=== PATIENT | female | born 1935 | race Caucasian/White ===

== ENCOUNTER 2017-04-03 23:50 | Emergency (ER) | payer OTHER, BC ==
[2017-04-04 02:11] VITALS: BP 111/54
== END 2017-04-04 02:11 | disposition home or self-care (01) ==
LOC: ED 23:50
DX: S81.811A Laceration without foreign body, right lower leg, initial encounter (principal); F41.9 Anxiety disorder, unspecified; M06.9 Rheumatoid arthritis, unspecified; E11.9 Type 2 diabetes mellitus without complications; I26.99 Other pulmonary embolism without acute cor pulmonale; K90.0 Celiac disease; Z79.899 Other long term (current) drug therapy; W22.8XXA Striking against or struck by other objects, initial encounter; Y93.89 Activity, other specified; Y92.89 Other specified places as the place of occurrence of the external cause; Y99.8 Other external cause status
CPT/HCPCS: J2001

== ENCOUNTER 2018-01-27 12:01 | Inpatient (IN) | payer OTHER, BC ==
[~2018-01-27] VITALS: Ht 160 cm; Wt 64.0 kg
[2018-01-27 14:15] LABS: BASOPHIL % 0.4 % (0-2); PLATELET COUNT 232 x10^3mcL (130-400)
[2018-01-27 14:23] LABS: RED CELL DISTRIBUTION WIDTH 15.6 % (11.5-14.5)
[2018-01-27 14:28] LABS: CALCIUM 9.2 mg/dL (8.5-10.1); CARBON DIOXIDE 30.4 mmol/L (21-32); CHLORIDE SERUM 100 mmol/L (98-107); CREATININE SERUM 0.8 mg/dL (0.6-1.0); GLUCOSE SERUM 95 mg/dL (74-106); SODIUM SERUM 138 mmol/L (136-145)
[2018-01-27 14:33] LABS: ALKALINE PHOSPHATASE 174 U/L (46-116); ALT/SGPT 25 U/L (14-59); AST/SGOT 29 U/L (15-37); BILIRUBIN TOTAL 0.4 mg/dL (0.20-1.00)
[2018-01-27 14:35] LABS: ALBUMIN 3.2 g/dL (3.4-5.0)
[2018-01-27] MEDS ORDERED: DULCOLAX5 M1 (15:39)
[2018-01-27] MEDS ORDERED: CITRATE OF1.75 GM/30 PO (15:40)
[2018-01-27] MEDS ORDERED: GABAPENTIN100 M2 (15:40)
[2018-01-27] MEDS ORDERED: ZOF4 (15:40)
[2018-01-27] MEDS ORDERED: COUMADIN1 MG (15:40)
[2018-01-27] MEDS ORDERED: ACID REDUCER75 MG (15:40)
[2018-01-27] MEDS ORDERED: TOPROL XL25 MG (15:41)
[2018-01-27] MEDS ORDERED: NORCO1 TA2 (15:41)
[2018-01-27 17:32] LABS: CHOLESTEROL/HDL RATIO 1.8; MAGNESIUM 2.7 mg/dL (1.8-2.4); PHOSPHOROUS 3.1 mg/dL (2.5-4.9); T3 TOTAL 0.63 ng/mL
[2018-01-27 17:35] LABS: FREE T4 1.24 ng/dL (0.76-1.46); FREE THYROXINE INDEX 2.6 ug/dL (1.4-4.5); T4(THYROXINE) 7.5 ug/dL (4.7-13.3)
[2018-01-27 17:46] VITALS: BP 156/83
[2018-01-27] MEDS ORDERED: LEVOTHYROXINE0.2 M2 PO (20:12)
[2018-01-27 21:33] VITALS: BP 144/78
[2018-01-28 05:31] VITALS: BP 149/91
[2018-01-28 06:44] LABS: BASOPHIL % 0.3 % (0-2); PLATELET COUNT 218 x10^3mcL (130-400); RED CELL DISTRIBUTION WIDTH 15.5 % (11.5-14.5)
[2018-01-28 07:04] LABS: CALCIUM 8.4 mg/dL (8.5-10.1); CARBON DIOXIDE 28.2 mmol/L (21-32); CHLORIDE SERUM 100 mmol/L (98-107); CREATININE SERUM 0.6 mg/dL (0.6-1.0); GLUCOSE SERUM 115 mg/dL (74-106); PHOSPHOROUS 2.7 mg/dL (2.5-4.9); POTASSIUM SERUM 3.9 mmol/L (3.5-5.1); SODIUM SERUM 135 mmol/L (136-145)
[2018-01-28 09:25] VITALS: BP 141/86
[2018-01-28 12:42] VITALS: BP 106/70
[2018-01-28 21:38] VITALS: BP 125/84
[2018-01-29 06:05] VITALS: BP 133/72
[2018-01-29 06:22] LABS: BASOPHIL % 0.4 % (0-2); PLATELET COUNT 205 x10^3mcL (130-400)
[2018-01-29 06:33] LABS: RED CELL DISTRIBUTION WIDTH 15.6 % (11.5-14.5)
[2018-01-29 06:41] LABS: CALCIUM 8.5 mg/dL (8.5-10.1); CARBON DIOXIDE 29.4 mmol/L (21-32); CHLORIDE SERUM 105 mmol/L (98-107); CREATININE SERUM 0.6 mg/dL (0.6-1.0); GLUCOSE SERUM 87 mg/dL (74-106); MAGNESIUM 2.4 mg/dL (1.8-2.4); PHOSPHOROUS 2.7 mg/dL (2.5-4.9); POTASSIUM SERUM 4.2 mmol/L (3.5-5.1); SODIUM SERUM 140 mmol/L (136-145)
[2018-01-29 09:55] VITALS: BP 128/79
[2018-01-29 10:15] VITALS: Ht 160 cm; Wt 64.0 kg
[2018-01-29 13:39] VITALS: BP 142/94
[2018-01-29 14:25] LABS: microscopic required? YES; urine erythrocyte TRACE (NEGATIVE)
[2018-01-29 16:45] VITALS: BP 127/78
[2018-01-29 21:34] VITALS: BP 140/79
[2018-01-30 06:36] LABS: BASOPHIL % 0.7 % (0-2); PLATELET COUNT 224 x10^3mcL (130-400)
[2018-01-30 06:39] LABS: RED CELL DISTRIBUTION WIDTH 15.4 % (11.5-14.5)
[2018-01-30 06:52] VITALS: BP 165/93
[2018-01-30 07:10] LABS: CHLORIDE SERUM 108 mmol/L (98-107); CREATININE SERUM 0.6 mg/dL (0.6-1.0); GLUCOSE SERUM 102 mg/dL (74-106); POTASSIUM SERUM 4.6 mmol/L (3.5-5.1); SODIUM SERUM 144 mmol/L (136-145)
[2018-01-30 10:26] VITALS: BP 140/79
[2018-01-30 11:07] VITALS: BP 151/89
[2018-01-30 13:35] VITALS: BP 151/91
[2018-01-30 22:20] VITALS: BP 145/95
[2018-01-31 05:40] VITALS: BP 166/109
[2018-01-31 06:40] LABS: BASOPHIL % 0.4 % (0-2); PLATELET COUNT 245 x10^3mcL (130-400)
[2018-01-31 07:01] LABS: RED CELL DISTRIBUTION WIDTH 15.2 % (11.5-14.5)
[2018-01-31 07:14] VITALS: BP 148/109
[2018-01-31 07:30] LABS: CARBON DIOXIDE 26.7 mmol/L (21-32); CHLORIDE SERUM 105 mmol/L (98-107); CREATININE SERUM 0.6 mg/dL (0.6-1.0); GLUCOSE SERUM 99 mg/dL (74-106); POTASSIUM SERUM 3.7 mmol/L (3.5-5.1); SODIUM SERUM 143 mmol/L (136-145)
[2018-01-31 10:13] VITALS: BP 143/94
[2018-01-31] MEDS ORDERED: COU5 PO (11:34)
[2018-01-31 14:33] VITALS: BP 134/92
== END 2018-01-31 15:35 | disposition home or self-care (01) | DRG 291 ==
LOC: ED 12:01 → DU 16:22
PROVIDERS: Emergency Medicine; Family Medicine Sports Medicine; Student in an Organized Health Care Education/Training Program
DX: I11.0 Hypertensive heart disease with heart failure (principal); N17.0 Acute kidney failure with tubular necrosis; E43 Unspecified severe protein-calorie malnutrition; Z68.1 Body mass index [BMI] 19.9 or less, adult; I27.82 Chronic pulmonary embolism; F11.20 Opioid dependence, uncomplicated; D68.9 Coagulation defect, unspecified; M48.54XA Collapsed vertebra, not elsewhere classified, thoracic region, initial encounter for fracture; K59.03 Drug induced constipation; I50.43 Acute on chronic combined systolic (congestive) and diastolic (congestive) heart failure; T40.2X5A Adverse effect of other opioids, initial encounter; I48.91 Unspecified atrial fibrillation; K21.9 Gastro-esophageal reflux disease without esophagitis; K44.9 Diaphragmatic hernia without obstruction or gangrene; T45.516A Underdosing of anticoagulants, initial encounter; M06.9 Rheumatoid arthritis, unspecified; M51.36 Other intervertebral disc degeneration, lumbar region; E83.41 Hypermagnesemia; E11.9 Type 2 diabetes mellitus without complications; E03.9 Hypothyroidism, unspecified; F41.1 Generalized anxiety disorder; F17.210 Nicotine dependence, cigarettes, uncomplicated; Z53.29 Procedure and treatment not carried out because of patient's decision for other reasons; Z91.120 Patient's intentional underdosing of medication regimen due to financial hardship; Z96.651 Presence of right artificial knee joint; Z79.01 Long term (current) use of anticoagulants; Z79.84 Long term (current) use of oral hypoglycemic drugs; T45.515A Adverse effect of anticoagulants, initial encounter; Y92.89 Other specified places as the place of occurrence of the external cause; Z91.19 Patient's noncompliance with other medical treatment and regimen; J44.9 Chronic obstructive pulmonary disease, unspecified; D64.9 Anemia, unspecified
CPT/HCPCS: 82962; 83880; 84439; 87046; 87046-59; J1885; J3010; J3430; J7030; J7042; J7620; Q0092; Q0162; Q9967

== ENCOUNTER 2018-11-03 02:35 | Emergency (ER) | payer OTHER, BC ==
[~2018-11-03] VITALS: Ht 172.7 cm; Wt 54.4 kg
[~2018-11-03 02:35] MED LIST: ACID REDUCER75 MG; CITRATE OF1.75 GM/30 PO; COU5 PO; COUMADIN1 MG; DULCOLAX5 M1; GABAPENTIN100 M2; LEVOTHYROXINE0.2 M2 PO; NORCO1 TA2; TOPROL XL25 MG; ZOF4
[2018-11-03 02:42] VITALS: Ht 172.7 cm; Wt 54.4 kg
[2018-11-03 03:37] LABS: BASOPHIL % 0.2 % (0-2); PLATELET COUNT 241 x10^3mcL (130-400); RED CELL DISTRIBUTION WIDTH 12.8 % (11.5-14.5)
[2018-11-03 05:19] VITALS: BP 150/94
== END 2018-11-03 05:19 | disposition home or self-care (01) ==
LOC: ED 02:35
PROVIDERS: Emergency Medicine
DX: S81.811A Laceration without foreign body, right lower leg, initial encounter (principal); E11.9 Type 2 diabetes mellitus without complications; I48.91 Unspecified atrial fibrillation; F41.9 Anxiety disorder, unspecified; Z86.79 Personal history of other diseases of the circulatory system; W26.8XXA Contact with other sharp object(s), not elsewhere classified, initial encounter; Y93.89 Activity, other specified; Y92.89 Other specified places as the place of occurrence of the external cause; Y99.8 Other external cause status
CPT/HCPCS: 90714; J2001

== ENCOUNTER 2018-11-04 21:35 | Emergency (ER) | payer OTHER, BC ==
[~2018-11-04] VITALS: Ht 172.7 cm; Wt 54.4 kg
[2018-11-04 21:41] VITALS: Ht 172.7 cm; Wt 54.4 kg
[2018-11-04 22:20] VITALS: BP 133/80
== END 2018-11-04 22:00 | disposition home or self-care (01) ==
LOC: ED 21:35
DX: S81.811A Laceration without foreign body, right lower leg, initial encounter (principal); E11.9 Type 2 diabetes mellitus without complications; M19.90 Unspecified osteoarthritis, unspecified site; I48.91 Unspecified atrial fibrillation; Z86.711 Personal history of pulmonary embolism; W45.8XXA Other foreign body or object entering through skin, initial encounter; Y93.89 Activity, other specified; Y92.89 Other specified places as the place of occurrence of the external cause; Y99.8 Other external cause status

== ENCOUNTER 2018-12-13 09:49 | Emergency (ER) | payer OTHER, BC ==
[~2018-12-13] VITALS: Ht 172.7 cm; Wt 56.7 kg
[2018-12-13 09:51] VITALS: Ht 172.7 cm; Wt 56.7 kg
[2018-12-13 12:20] VITALS: BP 158/99
== END 2018-12-13 12:20 | disposition home or self-care (01) ==
LOC: ED 09:49
DX: M13.812 Other specified arthritis, left shoulder (principal); E11.9 Type 2 diabetes mellitus without complications; F41.9 Anxiety disorder, unspecified; Z98.890 Other specified postprocedural states
CPT/HCPCS: J1885; Q0092

== ENCOUNTER 2019-03-15 13:41 | Emergency (ER) | payer OTHER, BC ==
[~2019-03-15] VITALS: Ht 172.7 cm; Wt 53.5 kg
[2019-03-15 13:45] VITALS: Ht 172.7 cm; Wt 53.5 kg
[2019-03-15 15:39] VITALS: BP 144/93
== END 2019-03-15 15:39 | disposition home or self-care (01) ==
LOC: ED 13:41
DX: T18.8XXA Foreign body in other parts of alimentary tract, initial encounter (principal); F17.210 Nicotine dependence, cigarettes, uncomplicated; E11.9 Type 2 diabetes mellitus without complications; F41.9 Anxiety disorder, unspecified; Z98.890 Other specified postprocedural states; X58.XXXA Exposure to other specified factors, initial encounter; Y93.89 Activity, other specified; Y92.89 Other specified places as the place of occurrence of the external cause; Y99.8 Other external cause status
CPT/HCPCS: 99406